=== PATIENT | female | born 1965 | race Caucasian/White ===

== ENCOUNTER 2017-10-06 23:35 | Emergency (ER) | payer SELFPAY ==
[2017-10-07] MEDS ORDERED: A lbuterol Hfa (PREPAK) 1 MDI - ED TAKE HOME DISPENSING ONLY INHH ONE (01:02)
[2017-10-07] MEDS ORDERED: diPHENhydraMINE PO* 50 MG PO ONE (01:03)
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
[2017-10-07 03:30] VITALS: BP 94/60
== END 2017-10-07 01:23 | disposition home or self-care (01) ==
LOC: ED 23:35
DX: T78.40XA Allergy, unspecified, initial encounter (principal); R21 Rash and other nonspecific skin eruption; R06.02 Shortness of breath; R11.2 Nausea with vomiting, unspecified; F17.210 Nicotine dependence, cigarettes, uncomplicated; X58.XXXA Exposure to other specified factors, initial encounter
CPT/HCPCS: 99283; A9270-GY

== ENCOUNTER 2018-11-16 16:38 | Emergency (ER) | payer BC ==
[2018-11-16 17:08] VITALS: BP 100/72
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
== END 2018-11-16 18:15 | disposition home or self-care (01) ==
LOC: UCEAST 16:38
DX: M62.830 Muscle spasm of back (principal); M54.2 Cervicalgia; M25.511 Pain in right shoulder; M25.512 Pain in left shoulder; W18.2XXA Fall in (into) shower or empty bathtub, initial encounter; F17.290 Nicotine dependence, other tobacco product, uncomplicated
CPT/HCPCS: 99212; G0463